=== PATIENT | male | born 1960 | race Caucasian/White ===

== ENCOUNTER → 2020-11-04 | Outpatient (CLI) | payer OTHER | LOC: COL.RAD 13:36 | DX: R10.11 Right upper quadrant pain (principal) ==

== ENCOUNTER → 2020-12-10 | Outpatient (CLI) | payer OTHER | LOC: COL.RAD 09:43 | DX: J43.9 Emphysema, unspecified (principal); M54.6 Pain in thoracic spine; R07.81 Pleurodynia; G89.29 Other chronic pain ==

== ENCOUNTER → 2023-08-10 | Outpatient (CLI) | payer OTHER | LOC: COL.RAD 11:11 | DX: R10.31 Right lower quadrant pain (principal) ==